=== PATIENT | female | born 1975 | race Caucasian/White ===

== ENCOUNTER 2017-10-26 14:39 | Inpatient (IN) ==
[2017-10-26] MEDS ORDERED: HYDROmorphone 2 MG/1 ML VIAL IV STA (15:51)
[2017-10-26] MEDS ORDERED: DIPH/TET/ACEL PERT BOOSTER VACCINE 0.5 ML VIAL IM ONE ×2 (15:51→16:17)
[2017-10-26] MEDS ORDERED: SODIUM CHLORIDE 0.9% 500 ML IV STA (15:51)
[2017-10-26] MEDS ORDERED: VANCOMYCIN INJ 1,000 MG in SODIUM CHLORIDE 0.9% 250 ML IV STA (15:51)
[2017-10-26] MEDS ORDERED: HYDROmorphone 2 MG/1 ML VIAL ONE (16:16)
[2017-10-26] MEDS ORDERED: VANCOMYCIN 1,000 MG VIAL ONE ×2 (16:16→16:25)
[2017-10-26] MEDS ORDERED: ONDANSETRON 4 MG/2 ML VIAL ONE (16:24)
[2017-10-26 16:25] LABS: Basophils % 0.3 % (0.0-0.8); Eosinophils # 0.3 10*3/uL (0.0-0.87); Eosinophils % 2.8 % (0.00-10.9); Hematocrit 38.6 VOL% (35.7-47.0); Hemoglobin 13.8 GM/DL (12.0-16.0); Immature Granulocytes % 0.4 %; Immature Granulocytes Absolute 0.04 #; Lymphocytes # 2.9 10*3/uL (1.4-4.0); Lymphocytes % 25.6 % (21.3-54.2); Mean Corpuscular HGB Conc 35.8 GM/DL (32-36); Mean Corpuscular Hemoglobin 33 PG (27-34); Mean Corpuscular Volume 93.5 FL (87-102); Mean Platelet Volume 9.1 FL (9.6-12.0); Monocytes # 0.7 10*3/uL (0.11-0.8); Monocytes % 6.2 % (1.7-12.7); Neutrophils # 7.3 10*3/uL (1.4-7.4); Neutrophils % 64.7 % (38.7-73.9); Platelet Count 255 T/CUMM (130-400); Red Blood Count 4.13 MC/CUMM (3.8-5.5); Red Cell Distribution Width 11.9 % (9.3-17.3); White Blood Count 11.2 T/CUMM (4-12)
[2017-10-26] MEDS ORDERED: ACETAMINOPHEN 325 MG TABLET PO PRN (16:39)
[2017-10-26] MEDS ORDERED: MORPHINE 2 MG/1 ML SYRINGE IV PRN (16:39)
[2017-10-26] MEDS ORDERED: ONDANSETRON 4 MG/2 ML VIAL IV PRN (16:39)
[2017-10-26] MEDS ORDERED: ONDANSETRON 4 MG/2 ML VIAL IV STA (16:41)
[2017-10-26 16:46] LABS: Alanine Aminotransferase 20 U/L (13-56); Albumin 4.2 G/DL (3.4-5.0); Alkaline Phosphatase 64 U/L (45-117); Aspartate Amino Transferase 14 U/L (0-37); Bilirubin,Total < 0.39 MG/DL (0.2-1.0); Blood Urea Nitrogen 9 MG/DL (7-18); Calcium 8.6 MG/DL (8.5-10.1); Glucose 85 MG/DL (74-106); Magnesium 2.4 MG/DL (1.8-2.4); Osmolality,Calculated 272.7 MOS/KG (273-304); Potassium 3.9 MMOL/L (3.5-5.1); Sodium 138 MMOL/L (136-145); Total Protein 6.9 G/DL (6.4-8.3)
[2017-10-26] MEDS ORDERED: methylPREDNISolone SOD SUC 125 MG/2 ML VIAL ONE (17:15)
[2017-10-26] MEDS ORDERED: FAMOTIDINE 20 MG/2 ML VIAL IV ONE (17:15)
[2017-10-26] MEDS ORDERED: diphenhydrAMINE 50 MG/1 ML VIAL ONE (17:15)
[2017-10-26] MEDS ORDERED: methylPREDNISolone SOD SUC 125 MG/2 ML VIAL IV ONE (17:35)
[2017-10-26] MEDS ORDERED: diphenhydrAMINE 50 MG/1 ML VIAL IV STA (17:35)
[2017-10-26] MEDS ORDERED: FAMOTIDINE 20 MG/2 ML VIAL IV STA (17:35)
[2017-10-26] MEDS: CLINDAMYCIN INJ 900 MG in PREMIX 1 EACH IV SCH (20:49)
[2017-10-26] MEDS: DOCUSATE SODIUM 100 MG CAPSULE PO SCH (20:49)
[2017-10-27] MEDS: CLINDAMYCIN INJ 900 MG in PREMIX 1 EACH IV SCH ×3 (02:14→15:53)
[2017-10-27] MEDS: PANTOPRAZOLE 40 MG TABLET PO SCH (08:35)
[2017-10-27] MEDS: DOCUSATE SODIUM 100 MG CAPSULE PO SCH ×2 (08:35→20:38)
[2017-10-27] MEDS ORDERED: fentaNYL 100 MCG/2 ML VIAL ONE (08:41)
[2017-10-27] MEDS ORDERED: MIDAZOLAM 2 MG/2 ML VIAL ONE (08:41)
[2017-10-27] MEDS ORDERED: ONDANSETRON 4 MG/2 ML VIAL ONE (08:41)
[2017-10-27] MEDS ORDERED: PROPOFOL 200 MG/20 ML VIAL IV ONE (08:41)
[2017-10-27] MEDS: diphenhydrAMINE 50 MG/1 ML VIAL IV PRN ×2 (10:54→20:59)
[2017-10-27] MEDS: FLUCONAZOLE 100 MG TABLET PO SCH (14:16)
[2017-10-27] MEDS: CLINDAMYCIN 300 MG CAPSULE PO SCH (20:37)
[2017-10-28] MEDS: DOCUSATE SODIUM 100 MG CAPSULE PO SCH (08:20)
[2017-10-28] MEDS: FLUCONAZOLE 100 MG TABLET PO SCH (08:20)
[2017-10-28] MEDS: PANTOPRAZOLE 40 MG TABLET PO SCH (08:20)
[2017-10-28] MEDS: CLINDAMYCIN 300 MG CAPSULE PO SCH (08:21)
[2017-10-28 11:42] VITALS: BP 93/49
== END 2017-10-28 13:03 | disposition home or self-care (01) | DRG 603 ==
LOC: N.ED 14:39 → N.EDINP 16:39 → N.3E 18:36
PROVIDERS: ADMIT Surgery; ATTEND Surgery